=== PATIENT | female | born 1985 | race Asian ===

== ENCOUNTER 2023-11-01 11:20 | Inpatient (IN) | payer OTHER ==
[2023-11-01 12:22] LABS: BASO % 0.3 % (0-2.0); HEMATOCRIT 36.9 % (32.4-45.2); HEMOGLOBIN 12.5 GM/dL (10.7-15.3); LYMPH % 14.2 % (8-40); MCH 31.9 pg (25.7-33.7); MCHC 33.8 g/dl (32.0-36.0); MEAN CELL VOLUME 94.2 fl (80-96); MEAN PLT VOLUME 10.9 fl (7.5-11.1); NEUT % 77.5 % (42.8-82.8); PLATELET COUNT 159 10^3/uL (134-434); RBC 3.92 M/mm3 (3.60-5.2); RDW 14.3 % (11.6-15.6); WHITE BLOOD COUNT 6.4 K/mm3 (4.0-10.0)
[2023-11-01 12:35] LABS: ACTIVATED PTT 30.1 SECONDS (25.2-36.5); INR 0.89 (0.83-1.09); PROTHROMBIN TIME (PATIENT) 10.3 SEC (9.7-13.0)
[2023-11-01 12:42] VITALS: BMI 30.6
[2023-11-01 12:50] LABS: POTASSIUM 3.9 mmol/L (3.5-5.1)
[2023-11-01 12:51] LABS: CALCIUM 9.6 mg/dL (8.5-10.1)
[2023-11-01] MEDS ORDERED: FENTANYL CITRATE/PF 50 MCG/ML VIAL ONE (12:52)
[2023-11-01] MEDS ORDERED: morphine SULFATE/PF 1 MG/2 ML (2cc Syringe - QUVA) ONE (12:52)
[2023-11-01 12:56] LABS: CREATININE 0.5 mg/dL (0.55-1.3)
[2023-11-01] MEDS ORDERED: ONDANSETRON 4 MG/2 ML VIAL ONE (13:16)
[2023-11-01] MEDS ORDERED: DEXAMETHASONE SOD PHOSPHATE 4 MG/1 ML VIAL ONE (13:16)
[2023-11-01] MEDS ORDERED: CITRIC ACID/SODIUM CITRATE 30 ML UNIT-DOSE CUP PO ONE (14:11)
[2023-11-01] MEDS ORDERED: IBUPROFEN 800 MG/8 ML IJ IVPB PRN (14:12)
[2023-11-01] MEDS ORDERED: ACETAMINOPHEN 1000 MG/100 ML BAG IVPB PRN (14:12)
[2023-11-01] MEDS ORDERED: ACETAMINOPHEN 325 MG TABLET (FP) PO PRN (14:12)
[2023-11-01] MEDS ORDERED: oxyCODONE HCL 5 MG TABLET PO PRN (14:12)
[2023-11-01] MEDS ORDERED: ONDANSETRON 4 MG/2 ML VIAL IVPB PRN (14:12)
[2023-11-01] MEDS ORDERED: ELECTROLYTE-148 SOLN 1,000 ML IV SCH (14:15)
[2023-11-01] MEDS: OXYTOCIN 20 UNITS in 0.9% NS 20 UNIT/1,000 ML INFUS.BAG IV SCH (14:25)
[2023-11-01] MEDS: CEFAZOLIN SODIUM 2 GM in DEXTROSE 5%-WATER 100 ML IVPB SCH (17:30)
[2023-11-01] MEDS: SENNOSIDES/DOCUSATE COMBO (SENNA PLUS) TABLET (UD) PO SCH (21:12)
[2023-11-02] MEDS: CEFAZOLIN SODIUM 2 GM in DEXTROSE 5%-WATER 100 ML IVPB SCH (01:13)
[2023-11-02] MEDS: OXYTOCIN 20 UNITS in 0.9% NS 20 UNIT/1,000 ML INFUS.BAG IV SCH (04:43)
[2023-11-02 08:24] LABS: BASO % 0.1 % (0-2.0); EOS % 0.1 % (0-4.5); HEMATOCRIT 26.8 % (32.4-45.2); HEMOGLOBIN 9.1 GM/dL (10.7-15.3); LYMPH % 13.8 % (8-40); MCH 32.2 pg (25.7-33.7); MCHC 34.1 g/dl (32.0-36.0); MEAN CELL VOLUME 94.5 fl (80-96); MEAN PLT VOLUME 11.3 fl (7.5-11.1); MONO % 6.4 % (3.8-10.2); NEUT % 79.6 % (42.8-82.8); PLATELET COUNT 118 10^3/uL (134-434); RBC 2.84 M/mm3 (3.60-5.2); RDW 14.5 % (11.6-15.6); WHITE BLOOD COUNT 6.3 K/mm3 (4.0-10.0)
[2023-11-02] MEDS: IBUPROFEN 600 MG TABLET (FP) PO PRN ×3 (14:00→23:07)
[2023-11-02] MEDS ORDERED: BISACODYL 10 MG SUPP.RECT RC PRN (14:12)
[2023-11-02] MEDS: SENNOSIDES/DOCUSATE COMBO (SENNA PLUS) TABLET (UD) PO SCH (23:07)
[2023-11-02] MEDS: SIMETHICONE 80 MG TAB.CHEW (FP) PO PRN (23:07)
[2023-11-03] MEDS: SIMETHICONE 80 MG TAB.CHEW (FP) PO PRN ×2 (04:22→19:49)
[2023-11-03] MEDS: IBUPROFEN 600 MG TABLET (FP) PO PRN ×4 (04:22→19:49)
[2023-11-03] MEDS: SENNOSIDES/DOCUSATE COMBO (SENNA PLUS) TABLET (UD) PO SCH (21:59)
[2023-11-04] MEDS: IBUPROFEN 600 MG TABLET (FP) PO PRN (06:54)
[2023-11-04 09:48] VITALS: BP 109/72; PULSE 97; RESP 16; TEMP 98.4
== END 2023-11-04 12:40 | disposition home or self-care (01) | DRG 540 ==
LOC: JDEL 11:20 → JLDR 11:57 → J3W 16:36
PROVIDERS: ADMIT Specialist; ATTEND Specialist
PROC: 10D00Z1 Extraction of Products of Conception, Low, Open Approach (ICD-10-PCS; principal; 2023-11-01)
PROC: 0DNW0ZZ Release Peritoneum, Open Approach (ICD-10-PCS; 2023-11-01)
PROC: 0DNU0ZZ Release Omentum, Open Approach (ICD-10-PCS; 2023-11-01)
DX: O34.211 Maternal care for low transverse scar from previous cesarean delivery (principal); Z37.0 Single live birth; O90.81 Anemia of the puerperium; O72.3 Postpartum coagulation defects; D69.6 Thrombocytopenia, unspecified; O99.892 Other specified diseases and conditions complicating childbirth; N73.6 Female pelvic peritoneal adhesions (postinfective); Z3A.38 38 weeks gestation of pregnancy
CPT/HCPCS: 36415; 59025; 80048; 85025; 85610; 85730; 86780; 86850; 86900; 86901; 88307-TC